=== PATIENT | female | born 1955 | race Hispanic/Latino ===

== ENCOUNTER 2017-05-24 13:09 | Emergency (ER) | payer MEDICAID ==
[2017-05-24 13:10] VITALS: BMI 35.1
[2017-05-24 13:31] VITALS: O2SAT 97
[2017-05-24] MEDS ORDERED: Oxycodone/Acetaminophen 5/325 mg Tab PO STA (15:29)
--- NOTE | 2017-05-24 15:29 | C.PDOC ---
History Of Present Illness Shayy Ross is a 62 year old female, with a past medical history hypertension, diabetes, and chronic back pain, who presents to the emergency department complaining of worsening back pain onset for 1 month. Patient reports she takes 2 Advils every 7 hours with minimal relief but denies taking any pain medication today. Patient denies any fever, chills, nausea, vomit, or abdominal pain. PMD: Karolina Whitley Time Seen by Provider: 05/24/17 13:38 Chief Complaint (Nursing): Lower Extremity Problem/Injury History Per: Patient History/Exam Limitations: no limitations Onset/Duration Of Symptoms: Days (x20 years), Worse Since (x1 month) Current Symptoms Are (Timing): Still Present Severity: Moderate Past Medical History Reviewed: Historical Data, Nursing Documentation, Vital Signs Vital Signs: Last Vital Signs Temp 98.0 F 05/24/17 16:34 Pulse 70 05/24/17 16:34 Resp 20 05/24/17 16:34 BP 119/76 05/24/17 16:34 Pulse Ox 97 05/24/17 16:34 - Medical History PMH: Diabetes, HTN - [facility] Procedures COLONOSCOPY (05/03/13) ESOPHAGOGASTRODUODENOSCOPY [EGD] W/CLOSED BIOPSY (04/23/13) Family History: States: Unknown Family Hx - Social History Hx Tobacco Use: Yes Hx Alcohol Use: No Hx Substance Use: No - Immunization History Hx Tetanus Toxoid Vaccination: No Hx Influenza Vaccination: Yes Hx Pneumococcal Vaccination: No Review Of Systems Except As Marked, All Systems Reviewed And Found Negative. Constitutional: Negative for: Fever, Chills Gastrointestinal: Negative for: Nausea, Vomiting, Abdominal Pain Musculoskeletal: Positive for: Back Pain (chronic) Physical Exam - Physical Exam Appears: Non-toxic, No Acute Distress Skin: Normal Color, Warm, Dry Head: Atraumatic, Normacephalic Eye(s): bilateral: Normal Inspection, PERRL, EOMI Ear(s): Bilateral: Normal Nose: Normal Throat: Normal Neck: Normal Respiratory: Normal Breath Sounds Back: Other (Point tenderness to left lower back) Extremity: Normal ROM Neurological/Psych: Oriented x3, Normal Speech, Normal Cognition, Normal Motor, Normal Sensation ED Course And Treatment O2 Sat by Pulse Oximetry: 97 (RA) Pulse Ox Interpretation: Normal Reassessment Condition: Improved Medical Decision Making Medical Decision Making: Initial Plan: --Flexeril 10 mg PO --Percocet 5/325 mg --Toradol 60 mg IM --reevaluation, improved, no sign of cauda equina Scribe Attestation The documentation for this encounter was entered by Antonio Hernandez acting as a scribe for Tiffany STONE All medical record entries made by the Scribe were at my direction and personally dictated by me. I have reviewed the chart and agree that the record accurately reflects my personal performance of the history, physical exam, medical decision making, and the department course for this patient. I have also personally directed, reviewed, and agree with the discharge instructions and disposition. Disposition Counseled Patient/Family Regarding: Diagnosis, Need For Followup, Rx Given - Disposition Referrals: Karolina Whitley MD [Staff Provider] - Disposition: HOME/ ROUTINE Disposition Time: 16:22 Condition: STABLE Additional Instructions: FOLLOW UP WITH PMD ON FRIDAY FOR RE-EVALUATION. IF SYMPTOMS GET WORSE OR ANY NEW CONCERNING SYMPTOMS DEVELOP RETURN TO ED. Prescriptions: Cyclobenzaprine [Cyclobenzaprine HCl] 1 tab PO TID PRN #15 tab PRN Reason: Pain, Moderate (4-7) Ibuprofen [Motrin Tab] 1 tab PO Q6H PRN #15 tab PRN Reason: Pain, Moderate (4-7) Instructions: Sciatica (ED) Forms: [facility] (Turkish) - Clinical Impression Clinical Impression: Sciatica of left side
[2017-05-24] MEDS ORDERED: Oxycodone/Acetaminophen 5/325 mg Tab ONE (15:46)
[2017-05-24 16:35] VITALS: BP 119/76; PULSE 70; RESP 20; TEMP 98
== END 2017-05-24 16:35 | disposition home or self-care (01) ==
LOC: C.ER 13:09
DX: M54.32 Sciatica, left side (principal)
CPT/HCPCS: 96372; 99284; J1885

== ENCOUNTER 2018-01-23 08:01 | Day surgery (SDC) | payer MEDICAID ==
[2018-01-23] MEDS ORDERED: Propofol 10 mg/ml Inj (20 ML) ONE ×2 (08:14→10:03)
[2018-01-23 08:34] VITALS: BMI 34.7
[2018-01-23 10:05] VITALS: TEMP 97.7
[2018-01-23 11:19] VITALS: BP 130/76; PULSE 78; RESP 15; O2SAT 98
== END 2018-01-23 11:00 | disposition home or self-care (01) ==
LOC: C.ENDO 08:01
PROVIDERS: ATTEND Internal Medicine
DX: K59.09 Other constipation (principal); Z80.0 Family history of malignant neoplasm of digestive organs; K21.9 Gastro-esophageal reflux disease without esophagitis; D12.2 Benign neoplasm of ascending colon; D12.5 Benign neoplasm of sigmoid colon; D12.3 Benign neoplasm of transverse colon; K57.30 Diverticulosis of large intestine without perforation or abscess without bleeding; K29.60 Other gastritis without bleeding; K29.80 Duodenitis without bleeding
CPT/HCPCS: 43239; 45380; 45388; 82948; 88305; J2001; J2704

== ENCOUNTER 2018-01-31 11:25 | Emergency (ER) | payer MEDICAID ==
[2018-01-31 11:25] VITALS: BMI 34.7
[2018-01-31 11:31] VITALS: BP 138/83; PULSE 91; RESP 18; TEMP 98.9; O2SAT 100
[2018-01-31] MEDS ORDERED: Lidocaine 5% Patch TD STA (11:50)
[2018-01-31] MEDS ORDERED: Lidocaine 5% Patch TD ONE (11:57)
--- NOTE | 2018-01-31 12:17 | C.PDOC ---
History Of Present Illness 63 year old female presents to the ED complaining of right sided low back and hip pain radiating down to her leg to mid calf area for a week. Patient describes pain as throbbing, aching with occasional sharpness in her leg. She notes pain is worsened by standing up or walking. Patient reports she has a history of similar symptoms on her left side. She states she takes tylenol and advil but she only gets minimal relief. Patient denies any falls, numbness, or urinary symptoms. Time Seen by Provider: 01/31/18 11:37 Chief Complaint (Nursing): Lower Extremity Problem/Injury History Per: Patient History/Exam Limitations: no limitations Onset/Duration Of Symptoms: Days Current Symptoms Are (Timing): Still Present Quality Of Discomfort: Sharp, Aching, Other (Throbbing ) Exacerbating Factor(s): Movement, Standing Past Medical History Reviewed: Historical Data, Nursing Documentation, Vital Signs Vital Signs: Last Vital Signs Temp 98.9 F 01/31/18 11:29 Pulse 91 H 01/31/18 11:29 Resp 18 01/31/18 11:29 BP 138/83 01/31/18 11:29 Pulse Ox 100 01/31/18 12:37 - Medical History PMH: Diabetes, Hypercholesterolemia Other Surgeries: Tubal Ligation - [facility] Procedures COLONOSCOPY (05/03/13) ESOPHAGOGASTRODUODENOSCOPY [EGD] W/CLOSED BIOPSY (04/23/13) Family History: States: No Known Family Hx - Social History Hx Tobacco Use: Yes Hx Alcohol Use: No Hx Substance Use: No - Immunization History Hx Tetanus Toxoid Vaccination: No Hx Influenza Vaccination: Yes Hx Pneumococcal Vaccination: No Review Of Systems Except As Marked, All Systems Reviewed And Found Negative. Genitourinary: Negative for: Dysuria, Hematuria Musculoskeletal: Positive for: Back Pain, Other (Right sided hip pain radiating down her leg) Neurological: Negative for: Weakness, Numbness Physical Exam - Physical Exam Appears: Non-toxic, No Acute Distress Skin: Normal Color, Warm, Dry Head: Atraumatic, Normacephalic Eye(s): bilateral: Normal Inspection Neck: Normal ROM Chest: Symmetrical Cardiovascular: Rhythm Regular Respiratory: Normal Breath Sounds Gastrointestinal/Abdominal: Soft, No Tenderness, No Guarding Back: Normal Inspection, No Vertebral Tenderness, No Paraspinal Tenderness Extremity: Normal ROM, No Tenderness, No Deformity Neurological/Psych: Oriented x3, Normal Speech Gait: Steady ED Course And Treatment O2 Sat by Pulse Oximetry: 100 (RA) Pulse Ox Interpretation: Normal Medical Decision Making Medical Decision Making: Impression: back pain, sciatica Plan: Toradol 60mg IM Valium 5mg PO Lidoderm patch Re-Eval: On reassessment, patient is resting comfortably, with improvement of back pain. Patient remains afebrile, with no bony tenderness, extremity numbness or weakness, or abdominal pain. Patient is ambulatory in the emergency department with no signs of discomfort. Patient was advised to follow up with physician/ clinic in 1-2 days. Disposition Counseled Patient/Family Regarding: Diagnosis, Need For Followup, Rx Given - Disposition Referrals: Karolina Whitley MD [Staff Provider] - Disposition: HOME/ ROUTINE Disposition Time: 12:15 Condition: GOOD Additional Instructions: Rx sent to [facility] pharmacy You can apply heat to area Take Tylenol 500mg for any pain Take Ibuprofen as needed for pain every 6-8 hours, with food to not upset stomach Take Flexeril every 8 hours as needed for muscular pain and spasm, caution may cause drowsiness Prescriptions: Cyclobenzaprine [Cyclobenzaprine HCl] 10 mg PO TID #21 tab Ibuprofen [Motrin] 600 mg PO Q8 #20 tab Instructions: Sciatica (DC) Forms: [facility] (Hungarian) - POA Present On Arrival: None - Clinical Impression Clinical Impression: Sciatica, Low back pain - PA / DOCUMENT CONTROL MANAGER / Resident Statement MD/DO has reviewed & agrees with the documentation as recorded. - Scribe Statement The provider has reviewed the documentation as recorded by the Scribe (Khushbu Fonseca) All medical record entries made by the Scribe were at my direction and personally dictated by me. I have reviewed the chart and agree that the record accurately reflects my personal performance of the history, physical exam, medical decision making, and the department course for this patient. I have also personally directed, reviewed, and agree with the discharge instructions and disposition.
== END 2018-01-31 12:28 | disposition home or self-care (01) ==
LOC: C.ER 11:25
DX: M54.40 Lumbago with sciatica, unspecified side (principal)
CPT/HCPCS: 96372; 99283; J1885

== ENCOUNTER 2018-04-18 07:37 | Inpatient (IN) | payer MEDICAID ==
[2018-04-18 07:38] VITALS: BMI 34.7
--- NOTE | 2018-04-18 07:49 | C.PDOC ---
Time Seen by Provider: 04/18/18 07:42 Chief Complaint (Nursing): Abnormal Skin Integrity Past Medical History Vital Signs: Last Vital Signs Temp 100.2 F H 04/18/18 07:40 Pulse 105 H 04/18/18 07:40 Resp 20 04/18/18 07:40 BP 152/79 H 04/18/18 07:40 Pulse Ox 99 04/18/18 07:40 - Medical History PMH: Diabetes, Hypercholesterolemia Denies: Chronic Kidney Disease - [facility] Procedures COLONOSCOPY (05/03/13) ESOPHAGOGASTRODUODENOSCOPY [EGD] W/CLOSED BIOPSY (04/23/13) Family History: States: Unknown Family Hx - Social History Hx Tobacco Use: Yes Hx Alcohol Use: No Hx Substance Use: No - Immunization History Hx Tetanus Toxoid Vaccination: No Hx Influenza Vaccination: Yes Hx Pneumococcal Vaccination: No ED Course And Treatment O2 Sat by Pulse Oximetry: 99 Disposition - Disposition
[2018-04-18] MEDS ORDERED: Sodium Chloride 0.9% 1,000 ML IV ONE (08:04)
[2018-04-18 08:33] LABS: BASO # 0.2 K/uL (0.0-0.2); BASO % 0.8 % (0.0-2.0); EOS # 0.1 K/uL (0.0-0.7); EOS % 0.7 % (0.0-4.0); HEMOGLOBIN 13.5 g/dL (11.0-16.0); LYMPH # 3.3 K/uL (1.0-4.3); LYMPH % 17.6 % (20.0-40.0); MEAN CELL VOLUME 88.3 fL (81.0-99.0); MEAN CORPUSCULAR HGB CONC 33.9 g/dL (33.0-37.0); MEAN PLATELET VOLUME 7.9 fL (7.2-11.7); MONO # 1.1 K/uL (0.0-0.8); MONO % 5.8 % (0.0-10.0); NEUT # 14.1 K/uL (1.8-7.0); NEUT % 75.1 % (50.0-75.0); RBC 4.52 Mil/uL (3.80-5.20); RED CELL DISTRIBUTION WIDTH 13.8 % (11.5-14.5)
[2018-04-18 08:34] LABS: WHITE BLOOD COUNT 18.8 K/uL (4.8-10.8)
[2018-04-18 08:45] LABS: ALB/GLOB RATIO 1.3 (1.0-2.1); ALBUMIN 4.5 g/dL (3.5-5.0); ALT/SGPT 24 U/L (9-52); AST/SGOT 23 U/L (14-36); BLOOD UREA NITROGEN 12 mg/dL (7-17); CALCIUM 9.9 mg/dl (8.6-10.4); GFR AFRICAN-AMERICAN > 60; GFR NON-AFRICAN AMERICAN > 60; LIPASE 119 U/L (23-300)
[2018-04-18 08:59] LABS: SQUAMOUS EPITHIAL 15 /hpf (0-5); URINE BILIRUBIN NEGATIVE (NEGATIVE); URINE BLOOD NEGATIVE (NEGATIVE); URINE CLARITY Hazy (Clear); URINE COLOR Amber (YELLOW); URINE GLUCOSE (UA) 1+ mg/dL (Normal); URINE LEUKOCYTE ESTERASE NEG Leu/uL (Negative); URINE PROTEIN NEGATIVE (NEGATIVE); URINE UROBILINOGEN NORMAL mg/dL (0.2-1.0)
--- NOTE | 2018-04-18 09:22 | C.PDOC ---
History Of Present Illness 63 y/o female, with PMHx of diabetes, presents to ED c/o swelling and pain to right side of face for the last 2 weeks. Notes she had unknown imaging done prior. She reports increased swelling to right cheek. Denies any other complaints. Time Seen by Provider: 04/18/18 07:42 Chief Complaint (Nursing): Abnormal Skin Integrity History Per: Patient History/Exam Limitations: no limitations Past Medical History Reviewed: Historical Data, Nursing Documentation, Vital Signs Vital Signs: Last Vital Signs Temp 100.2 F H 04/18/18 07:40 Pulse 105 H 04/18/18 07:40 Resp 20 04/18/18 07:40 BP 152/79 H 04/18/18 07:40 Pulse Ox 99 04/18/18 12:06 - Medical History PMH: Diabetes, Hypercholesterolemia Denies: Chronic Kidney Disease - [facility] Procedures COLONOSCOPY (05/03/13) ESOPHAGOGASTRODUODENOSCOPY [EGD] W/CLOSED BIOPSY (04/23/13) Family History: States: Unknown Family Hx - Social History Hx Tobacco Use: Yes Hx Alcohol Use: No Hx Substance Use: No - Immunization History Hx Tetanus Toxoid Vaccination: No Hx Influenza Vaccination: Yes Hx Pneumococcal Vaccination: No Review Of Systems Except As Marked, All Systems Reviewed And Found Negative. Constitutional: Negative for: Fever, Chills ENT: Positive for: Other (right cheek pain and swelling). Negative for: Throat Swelling Gastrointestinal: Positive for: Nausea. Negative for: Vomiting Neurological: Positive for: Weakness Physical Exam - Physical Exam Appears: Non-toxic, No Acute Distress Skin: Normal Color, Warm, Dry Head: Atraumatic, Normacephalic, Tenderness (right parotid region), Swelling ( right parotid region) Eye(s): bilateral: Normal Inspection Oral Mucosa: Moist Lips: Normal Appearing Teeth: Normal Dentition Gingiva: Normal Appearing Throat: Normal Neck: Normal ROM, Supple, Other (moderate swelling to right mandible and neck area) Cardiovascular: Rhythm Regular Respiratory: Normal Breath Sounds, No Rales, No Rhonchi, No Wheezing Gastrointestinal/Abdominal: Normal Exam Extremity: Normal ROM Neurological/Psych: Oriented x3, Normal Speech Gait: Steady ED Course And Treatment - Laboratory Results Result Diagrams: 04/18/18 08:28 04/18/18 08:28 Lab Interpretation: Abnormal O2 Sat by Pulse Oximetry: 99 Pulse Ox Interpretation: Normal - CT Scan/US No standard instances Other Rad Studies (CT/US): Read By Radiologist, Radiology Report Reviewed CT/US Interpretation: HISTORY: swelling right parotid area. COMPARISON: None available. TECHNIQUE: CT of the neck with intravenous contrast. Coronal and sagittal reformats generated. Intravenous contrast dose: 100 mL Omnipaque 300. Radiation dose: DLP 452.8 mGy-cm. This CT exam was performed using one or more of the following dose reduction techniques: Automated exposure control, adjustment of the mA and/or kV according to patient size, and/or use of iterative reconstruction technique. FINDINGS: NASOPHARYNX: Unremarkable. SUPRAHYOID NECK: Unremarkable oropharynx, oral cavity, parapharyngeal space and retropharyngeal space. INFRAHYOID NECK: Unremarkable larynx, hypopharynx, and supraglottic space. Vocal cords intact. MASS: There is mildly enhancing well defined lesion at the right parotid gland measures 4 centimeter in the largest transverse diameter 4.3 centimeter in the AP diameter and 5.6 centimeter in the largest longitudinal diameter surrounding with thin enhancing wall. Findings suspicious for right parotid tumor. The differential consideration includes less likely parotid abscess. GLANDS: The left parotid gland is unremarkable. The right parotid gland demonstrate mass lesion as described above. There are mild fat stranding surrounding the mid and lower portion of the right parotid gland. Mild skin thickening also noted adjacent to the right parotid gland. Mildly enlarged level 2 right upper neck lymph node measures 1.7 centimeter in the transverse diameter 2.7 centimeter in the longitudinal diameter. The right thyroid lobe is enlarged heterogeneous likely contains large nodule. The left thyroid lobe is normal in size demonstrate heterogeneous attenuation. LYMPH NODES: Normal. No lymphadenopathy. CERVICAL SPINE: No fracture or focal lesion. VASCULAR STRUCTURES: Unremarkable. OTHER FINDINGS: Mild emphysematous changes at the lung apices are noted. IMPRESSION: Well defined mass like lesion at the mid and lower portion of the right parotid gland suspicious for parotid tumor. The differential diagnosis includes less likely parotid abscess. If indicated further assessment by ultrasound or MRI may be obtained. Mildly enlarged right upper neck level 2 lymph nodes. Progress Note: Treated with IVF NSS and toradol IV. On re evaluation lungs clear. Case discussed with Dr Augusto Whitley who agrees to admit. Treated with rocephin and vancomycin IV - Physician Consult Information Physician Contacted: Karolina Whitley Outcome Of Conversation: admit Medical Decision Making Medical Decision Making: Plan: Blood work Urinalysis Neck soft tissue CT Toradol, IV fluids [address] Augusto Whitley about plan of care. Disposition Discussed With Dr.: Karolina Whitley Doctor Will See Patient In The: Hospital - Disposition Disposition: HOSPITALIZED Disposition Time: 12:00 Condition: STABLE Forms: [facility] (Finnish) - POA Present On Arrival: None - Clinical Impression Clinical Impression: Mass of parotid gland - PA / CUSTOMER ORDER CLERK / Resident Statement MD/DO has reviewed & agrees with the documentation as recorded. - Scribe Statement The provider has reviewed the documentation as recorded by the Scribe KP All medical record entries made by the Scribe were at my direction and personally dictated by me. I have reviewed the chart and agree that the record accurately reflects my personal performance of the history, physical exam, medical decision making, and the department course for this patient. I have also personally directed, reviewed, and agree with the discharge instructions and disposition. Decision To Admit - Pt Status Changed To: Hospital Disposition Of: Inpatient - Admit Certification Admit to Inpatient:: After my assessment, the patient will require hospitalization for at least two midnights. This is because of the severity of symptoms shown, intensity of services needed, and/or the medical risk in this patient being treated as an outpatient. - InPatient: Physician Admission Certification: I certify that this patient requires 2 or more midnights of care for the following reason:: Parotid mass - . Bed Request Type: Regular Admitting Physician: Karolina Whitley Patient Diagnosis: Mass of parotid gland
[2018-04-18] MEDS ORDERED: Iodixanol 320 MG/ML 100 ML BOTTLE IV ONE (09:31)
--- NOTE | 2018-04-18 10:32 | CT ---
Date of service: 04/18/2018 PROCEDURE: CT NECK WITH CONTRAST HISTORY: swelling right parotid area COMPARISON: None available. TECHNIQUE: CT of the neck with intravenous contrast. Coronal and sagittal reformats generated. Intravenous contrast dose: 100 mL Omnipaque 300. Radiation dose: DLP 452.8 mGy-cm This CT exam was performed using one or more of the following dose reduction techniques: Automated exposure control, adjustment of the mA and/or kV according to patient size, and/or use of iterative reconstruction technique. FINDINGS: NASOPHARYNX: Unremarkable. SUPRAHYOID NECK: Unremarkable oropharynx, oral cavity, parapharyngeal space and retropharyngeal space. INFRAHYOID NECK: Unremarkable larynx, hypopharynx, and supraglottic space. Vocal cords intact. MASS: There is mildly enhancing well defined lesion at the right parotid gland measures 4 centimeter in the largest transverse diameter 4.3 centimeter in the AP diameter and 5.6 centimeter in the largest longitudinal diameter surrounding with thin enhancing wall. Findings suspicious for right parotid tumor. The differential consideration includes less likely parotid abscess. GLANDS: The left parotid gland is unremarkable. The right parotid gland demonstrate mass lesion as described above. There are mild fat stranding surrounding the mid and lower portion of the right parotid gland. Mild skin thickening also noted adjacent to the right parotid gland. Mildly enlarged level 2 right upper neck lymph node measures 1.7 centimeter in the transverse diameter 2.7 centimeter in the longitudinal diameter. The right thyroid lobe is enlarged heterogeneous likely contains large nodule. The left thyroid lobe is normal in size demonstrate heterogeneous attenuation. LYMPH NODES: Normal. No lymphadenopathy. CERVICAL SPINE: No fracture or focal lesion. VASCULAR STRUCTURES: Unremarkable. OTHER FINDINGS: Mild emphysematous changes at the lung apices are noted. IMPRESSION: Well defined mass like lesion at the mid and lower portion of the right parotid gland suspicious for parotid tumor. The differential diagnosis includes less likely parotid abscess. If indicated further assessment by ultrasound or MRI may be obtained. Mildly enlarged right upper neck level 2 lymph nodes.
[2018-04-18] MEDS ORDERED: cefTRIAXone IV 1 gm in Dextros 50 ML IV ONE (10:38)
[2018-04-18] MEDS ORDERED: Vancomycin 1 GM 1 GM/250 ML BAG IV SCH (11:00)
[2018-04-18] MEDS ORDERED: Vancomycin 1 gm/NS 200 ml 1 GM/200 ML BAG IVPB STA (11:15)
[2018-04-18] MEDS ORDERED: Morphine 4 MG/ML VIAL ONE (15:14)
--- NOTE | 2018-04-18 16:24 | CP.PCM.HP ---
Past Patient History - Infectious Disease Hx of Infectious Diseases: None - Past Medical History & Family History Past Medical History?: Yes - Past Social History Smoking Status: Light Smoker < 10 Cigarettes Daily - CARDIAC Hx Hypercholesterolemia: Yes - PULMONARY Hx Respiratory Disorders: No - NEUROLOGICAL Hx Neurological Disorder: No - HEENT Hx HEENT Problems: No - RENAL Hx Chronic Kidney Disease: No - ENDOCRINE/METABOLIC Hx Endocrine Disorders: No Hx Diabetes Mellitus Type 2: Yes - HEMATOLOGICAL/ONCOLOGICAL Hx Blood Disorders: No - INTEGUMENTARY Hx Dermatological Problems: No - MUSCULOSKELETAL/RHEUMATOLOGICAL Hx Musculoskeletal Disorders: No - GASTROINTESTINAL Hx Gastrointestinal Disorders: Yes Hx Gastroesophageal Reflux: Yes - GENITOURINARY/GYNECOLOGICAL Hx Genitourinary Disorders: No - PSYCHIATRIC Hx Substance Use: No - SURGICAL HISTORY Hx Surgeries: Yes Hx Tubal Ligation: Yes - ANESTHESIA Hx Anesthesia: Yes Hx Anesthesia Reactions: No Hx Malignant Hyperthermia: No Meds Allergies/Adverse Reactions: Allergies Allergy/AdvReac Type Severity Reaction Status Date / Time No Known Allergies Allergy Verified 04/18/18 07:41 Physical Exam - Constitutional Appears: Well - Head Exam Head Exam: ATRAUMATIC, NORMAL INSPECTION, NORMOCEPHALIC - Eye Exam Eye Exam: EOMI, Normal appearance, PERRL Pupil Exam: NORMAL ACCOMODATION, PERRL - ENT Exam ENT Exam: Mucous Membranes Moist, Normal Exam - Neck Exam Neck exam: Positive for: Normal Inspection - Respiratory Exam Respiratory Exam: Decreased Breath Sounds - Cardiovascular Exam Cardiovascular Exam: REGULAR RHYTHM, +S1, +S2 - GI/Abdominal Exam GI & Abdominal Exam: Diminished Bowel Sounds, Soft - Rectal Exam Rectal Exam: Deferred Results - Vital Signs Recent Vital Signs: Last Vital Signs Temp 98.3 F 04/18/18 12:10 Pulse 89 04/18/18 15:18 Resp 16 04/18/18 15:18 BP 154/79 H 04/18/18 15:18 Pulse Ox 100 04/18/18 15:18 - Labs Result Diagrams: 04/18/18 08:28 04/18/18 08:28 Labs: Laboratory Results - last 24 hr 04/18/18 04/18/18 04/18/18 08:28 08:28 08:39 WBC 18.8 H RBC 4.52 Hgb 13.5 Hct 39.9 MCV 88.3 MCH 30.0 MCHC 33.9 RDW 13.8 Plt Count 362 MPV 7.9 Neut % (Auto) 75.1 H Lymph % (Auto) 17.6 L Giles % (Auto) 5.8 Eos % (Auto) 0.7 Baso % (Auto) 0.8 Neut # (Auto) 14.1 H Lymph # (Auto) 3.3 Giles # (Auto) 1.1 H Eos # (Auto) 0.1 Baso # (Auto) 0.2 Sodium 141 Potassium 3.9 Chloride 99 Carbon Dioxide 29 Anion Gap 17 BUN 12 Creatinine 0.8 Est GFR ( Amer) > 60 Est GFR (Non-Af Amer) > 60 Random Glucose 210 H Calcium 9.9 Total Bilirubin 0.7 AST 23 ALT 24 Alkaline Phosphatase 92 Total Protein 8.0 Albumin 4.5 Globulin 3.5 Albumin/Globulin Ratio 1.3 Lipase 119 Urine Color Agata Urine Clarity Hazy Urine pH 6.0 Ur Specific [place] 1.023 Urine Protein Negative Urine Glucose (UA) 1+ Urine Ketones Negative Urine Blood Negative Urine Nitrate Negative Urine Bilirubin Negative Urine Urobilinogen Normal Ur Leukocyte Esterase Neg Urine WBC (Auto) 2 Urine RBC (Auto) 1 Ur Squamous Epith Cells 15 H
[2018-04-18 17:52] VITALS: RESP 20
[2018-04-18] MEDS: (Novolog) Insulin Aspart, Recombinant 100 u/ml 10 ml vial SC SCH (22:37)
[2018-04-19] MEDS: (Novolog) Insulin Aspart, Recombinant 100 u/ml 10 ml vial SC SCH ×4 (08:20→21:51)
[2018-04-19] MEDS ORDERED: LIRAGLUTIDE 1.8 MG PO SCH (10:00)
[2018-04-19] MEDS: Pantoprazole 40 mg EC Tab PO SCH (10:45)
[2018-04-19] MEDS: Enoxaparin 40 mg Syringe SC SCH (10:45)
--- NOTE | 2018-04-19 12:53 | CP.PCM.PN ---
Subjective - Date & Time of Evaluation Date of Evaluation: 04/19/18 Time of Evaluation: 07:45 - Subjective Subjective: clinically same Objective - Vital Signs/Intake and Output Vital Signs (last 24 hours): Temp Pulse Resp BP Pulse Ox 98.9 F 90 20 133/78 97 04/19/18 08:27 04/19/18 08:27 04/19/18 08:27 04/19/18 08:27 04/19/18 08:27 Intake and Output: 04/19/18 04/19/18 06:59 18:59 Intake Total 120 Balance 120 - Medications Medications: Current Medications Cyclobenzaprine HCl (Flexeril) 10 mg PO TID [facility] Last Admin: 04/19/18 10:45 Dose: 10 mg Enoxaparin Sodium (Lovenox) 40 mg SC DAILY [facility] Last Admin: 04/19/18 10:45 Dose: 40 mg Hydrochlorothiazide (Hydrodiuril) 25 mg PO DAILY [facility] Last Admin: 04/19/18 10:44 Dose: 25 mg Ceftriaxone Sodium 1 gm/ (Sodium Chloride) 100 mls @ 200 mls/hr IVPB Q24H [facility] PRN Reason: Protocol Last Admin: 04/19/18 11:02 Dose: 200 mls/hr Ibuprofen (Motrin Tab) 800 mg PO TID PRN PRN Reason: Pain, moderate (4-7) Last Admin: 04/19/18 12:34 Dose: 800 mg Insulin Aspart (Novolog) 0 unit SC ACHS [facility] PRN Reason: Protocol Last Admin: 04/19/18 11:07 Dose: Not Given Metformin HCl (Glucophage) 1,000 mg PO BIDCC [facility] Last Admin: 04/19/18 08:19 Dose: 1,000 mg Morphine Sulfate (Morphine) 2 mg IVP Q4 PRN PRN Reason: Pain, severe (8-10) Last Admin: 04/19/18 08:35 Dose: 2 mg Pantoprazole Sodium (Protonix Ec Tab) 40 mg PO DAILY [facility] Last Admin: 04/19/18 10:45 Dose: 40 mg Pneumococcal Polyvalent Vaccine (Pneumovax 23 Vaccine) 0.5 ml IM .ONCE ONE Stop: 04/21/18 10:01 Rosuvastatin Calcium (Crestor) 5 mg PO [facility] Last Admin: 04/18/18 22:35 Dose: Not Given - Labs Labs: 04/18/18 08:28 04/18/18 08:28 - Constitutional Appears: Well - Head Exam Head Exam: ATRAUMATIC, NORMAL INSPECTION, NORMOCEPHALIC - Eye Exam Eye Exam: EOMI, Normal appearance, PERRL Pupil Exam: NORMAL ACCOMODATION, PERRL - ENT Exam ENT Exam: Mucous Membranes Moist, Normal Exam - Neck Exam Neck Exam: Full ROM, Normal Inspection. absent: Lymphadenopathy - Respiratory Exam Respiratory Exam: Decreased Breath Sounds - Cardiovascular Exam Cardiovascular Exam: REGULAR RHYTHM, +S1, +S2 - GI/Abdominal Exam GI & Abdominal Exam: Soft, Diminished Bowel Sounds - Rectal Exam Rectal Exam: Deferred
--- NOTE | 2018-04-19 14:59 | CP.PCM.CON ---
History of Present Illness - History of Present Illness History of Present Illness: 63 y/o female, with PMHx of diabetes, presents to ED c/o swelling and pain to right side of face for the last 2 weeks. Notes she had unknown imaging done prior. She reports increased swelling to right cheek. Denies any other complaints. ID consult requested may need drainage by ENT - Medical History PMH: Diabetes, Hypercholesterolemia Denies: Chronic Kidney Disease - [facility] Procedures COLONOSCOPY (05/03/13) ESOPHAGOGASTRODUODENOSCOPY [EGD] W/CLOSED BIOPSY (04/23/13) Review of Systems - Review of Systems All systems: reviewed and no additional remarkable complaints except - Constitutional Constitutional: As Per HPI - EENT Eyes: absent: As Per HPI, Blind Spots, Blurred Vision, Change in Vision, Decreased Night Vision, Diplopia, Discharge, Dry Eye, Exophthalmos, Floaters, Irritation, Itchy Eyes, Loss of Peripheral Vision, Pain, Photophobia, Requires Corrective Lenses, Sees Flashes, Spots in Vision, Tunnel Vision, Other Visual Disturbances, Loss of Vision, Other Ears: absent: As Per HPI, Decreased Hearing, Ear Discharge, Ear Pain, Tinnitus, Abnormal Hearing, Disequilibrium, Dizziness, Other Nose/Mouth/Throat: As Per HPI - Breasts Breasts: absent: As Per HPI, Change in Shape, Mass, Pain, Nipple Discharge, Nipple Inversion, Skin Changes, Swelling, Other - Cardiovascular Cardiovascular: absent: As Per HPI, Acrocyanosis, Chest Pain, Chest Pain at Rest , Chest Pain with Activity, Claudication, Diaphoresis, Dyspnea, Dyspnea on Exertion, Edema, Irregular Heart Rhythm, Pain Radiating to Arm/Neck/Jaw, Leg Edema, Leg Ulcers, Lightheadedness, Orthopnea, Palpitations, Paroxysmal Nocturnal Dyspnea, Pedal Edema, Radiating Pain, Rapid Heart Rate, Slow Heart Rate, Syncope, Other - Respiratory Respiratory: absent: As Per HPI, Cough, Dyspnea, Hemoptysis, Dyspnea on Exertion , Wheezing, Snoring, Stridor, Pain on Inspiration, Chest Congestion, Excessive Mucous Production, Change in Mucous Color, Pain with Coughing, Other - Gastrointestinal Gastrointestinal: absent: As Per HPI, Abdominal Pain, Belching, Bloating, Change in Bowel Habits, Change in Stool Character, Coffee Ground Emesis, Constipation, Cramping, Diarrhea, Dyspepsia, Dysphagia, Early Satiety, Excessive Flatus, Fecal Incontinence, Heartburn, Hematemesis, Hematochezia, Loose Stools, Melena, Nausea, Odynophagia, Temesmus, Vomiting, Other - Genitourinary Genitourinary: absent: As Per HPI, Change in Urinary Stream, Difficulty Urinating, Dysuria, Flank Pain, Hematuria, Pyuria, Nocturia, Urinary Incontinence, Urinary Frequency, Urinary Hesitance, Urinary Urgency, Voiding Freq/Small Amts, Freq UTI, Hx Renal/Bladder Calculi, Hx /Renal Surgery, Bladder Distension, Other - Reproductive: Female Reproductive:Female: absent: As Per HPI, Amenorrhea, Amenorrhea/ Control, Currently Menstual, Cycle <21 Days, Cycle >35 Days, Cycle Variable, Menses 1-7 Days, Menses >/= 8 Days, Menses Variable, Cycle > 4 Weeks Between, No Menses for 6 Months, Heavy Menses, Light Menses, Normal Menses, Spotting Between Cycles , S/P Hysterectomy, Menopausal, Post Menopausal, Premenarche, Abnormal Vaginal Bleeding, Dysmenorrhea, Dyspareunia, Genital Lesions, Genital Pruritis, Pelvic Pain, Prolapse Symptoms, Sexual Dysfunction, Vaginal Discharge, Vaginal Dryness , Vaginal Odor, Vaginal Pruritis, Other - Menstruation Menstruation: absent: As Per HPI, Amenorrhea, Amenorrhea/ Control, Currently Menstual, Cycle <21 Days, Cycle >35 Days, Cycle Variable, Menses 1-7 Days, Menses >/= 8 Days, Menses Variable, Cycle > 4 Weeks Between, No Menses for 6 Months, Heavy Menses, Light Menses, Normal Menses, Spotting Between Cycles , S/P Hysterectomy, Menopausal, Post Menopausal, Premenarche, Abnormal Vaginal Bleeding, Dysmenorrhea, Other - Musculoskeletal Musculoskeletal: absent: As Per HPI, Abnormal Gait, Arthralgias, Atrophy, Back Pain, Deformity, Joint Swelling, Limited Range of Motion, Loss of Height, Muscle Cramps, Muscle Weakness, Myalgias, Neck Pain, Numbness, Radiating Pain into Limb, Stiffness, Tingling, Other - Integumentary Integumentary: absent: As Per HPI, Acne, Alopecia, Bleeding Lesions, Change in Hair, Change in Nails, Change in Pigmentation, Changing Lesions, Dry Skin, Erythema, Furuncle, Hirsutism, Lesions, New Lesions, Non-Healing Lesions, Photosensitivity, Pruritus, Rash, Skin Pain, Skin Ulcer, Sores, Striae, Swelling , Unusual Bruising, Wounds, Jaundice, Other - Neurological Neurological: absent: As Per HPI, Abnormal Gait, Abnormal Hearing, Abnormal Movements, Abnormal Speech, Behavioral Changes, Burning Sensations, Confusion, Convulsions, Disequilibrium, Dizziness, Numbness, Focal Weakness, Frequent Falls , Headaches, Lack of Coordination, Loss of Vision, Memory Loss, Paresthesias, Radicular Pain, Restless Legs, Sensory Deficit, Syncope, Tingling, Tremor, Vertigo, Weakness, Other Visual Disturbances, Other - Psychiatric Psychiatric: absent: As Per HPI, Abnormal Sleep Pattern, Anhedonia, Anxiety, Auditory Hallucinations, Behavioral Changes, Change in Appetite, Change in Libido, Confusion, Depression, Difficulty Concentrating, Hallucinations, Homicidal Ideation, Hopelessness, Irritability, Memory Loss, Mood Swings, Panic Attacks, Paranoia, Suicidal Ideation, Visual Hallucinations, Tactile Hallucinations, Other - Endocrine Endocrine: absent: As Per HPI, Change in Body Appearance, Change in Libido, Cold Intolorance, Deepening of Voice, Excessive Sweating, Fatigue, Flushing, Heat Intolorance, Increase in Ring/Shoe/Hat Size, Palpitations, Polydipsia, Polyphagia, Polyuria, Other - Hematologic/Lymphatic Hematologic: absent: As Per HPI, Easy Bleeding, Easy Bruising, Lymphadenopathy, Other Past Patient History - Infectious Disease Hx of Infectious Diseases: None - Past Medical History & Family History Past Medical History?: Yes - Past Social History Smoking Status: Light Smoker < 10 Cigarettes Daily - CARDIAC Hx Hypercholesterolemia: Yes - PULMONARY Hx Respiratory Disorders: No - NEUROLOGICAL Hx Neurological Disorder: No - HEENT Hx HEENT Problems: No - RENAL Hx Chronic Kidney Disease: No - ENDOCRINE/METABOLIC Hx Endocrine Disorders: No Hx Diabetes Mellitus Type 2: Yes - HEMATOLOGICAL/ONCOLOGICAL Hx Blood Disorders: No - INTEGUMENTARY Hx Dermatological Problems: No - MUSCULOSKELETAL/RHEUMATOLOGICAL Hx Musculoskeletal Disorders: No Hx Falls: No - GASTROINTESTINAL Hx Gastrointestinal Disorders: Yes Hx Gastroesophageal Reflux: Yes - GENITOURINARY/GYNECOLOGICAL Hx Genitourinary Disorders: No - PSYCHIATRIC Hx Substance Use: No - SURGICAL HISTORY Hx Surgeries: Yes Hx Tubal Ligation: Yes - ANESTHESIA Hx Anesthesia: Yes Hx Anesthesia Reactions: No Hx Malignant Hyperthermia: No Meds Allergies/Adverse Reactions: Allergies Allergy/AdvReac Type Severity Reaction Status Date / Time No Known Allergies Allergy Verified 04/18/18 07:41 - Medications Medications: Current Medications Cyclobenzaprine HCl (Flexeril) 10 mg PO TID [facility] Last Admin: 04/19/18 14:21 Dose: 10 mg Enoxaparin Sodium (Lovenox) 40 mg SC DAILY [facility] Last Admin: 04/19/18 10:45 Dose: 40 mg Hydrochlorothiazide (Hydrodiuril) 25 mg PO DAILY [facility] Last Admin: 04/19/18 10:44 Dose: 25 mg Ceftriaxone Sodium 1 gm/ (Sodium Chloride) 100 mls @ 200 mls/hr IVPB Q24H [facility] PRN Reason: Protocol Last Admin: 04/19/18 11:02 Dose: 200 mls/hr Ibuprofen (Motrin Tab) 800 mg PO TID PRN PRN Reason: Pain, moderate (4-7) Last Admin: 04/19/18 12:34 Dose: 800 mg Insulin Aspart (Novolog) 0 unit SC ACHS [facility] PRN Reason: Protocol Last Admin: 04/19/18 11:07 Dose: Not Given Metformin HCl (Glucophage) 1,000 mg PO BIDCC [facility] Last Admin: 04/19/18 08:19 Dose: 1,000 mg Morphine Sulfate (Morphine) 2 mg IVP Q4 PRN PRN Reason: Pain, severe (8-10) Last Admin: 04/19/18 08:35 Dose: 2 mg Pantoprazole Sodium (Protonix Ec Tab) 40 mg PO DAILY [facility] Last Admin: 04/19/18 10:45 Dose: 40 mg Pneumococcal Polyvalent Vaccine (Pneumovax 23 Vaccine) 0.5 ml IM .ONCE ONE Stop: 04/21/18 10:01 Rosuvastatin Calcium (Crestor) 5 mg PO [facility] Last Admin: 04/18/18 22:35 Dose: Not Given Physical Exam - Constitutional Appears: Non-toxic, Chronically Ill - Head Exam Head Exam: NORMOCEPHALIC - Eye Exam Eye Exam: PERRL - ENT Exam ENT Exam: Mucous Membranes Dry Additional comments: large mass right parotid- + tenderness and warmth - Neck Exam Neck exam: Negative for: Lymphadenopathy - Respiratory Exam Respiratory Exam: Decreased Breath Sounds - Cardiovascular Exam Cardiovascular Exam: REGULAR RHYTHM - GI/Abdominal Exam GI & Abdominal Exam: Diminished Bowel Sounds - Rectal Exam Rectal Exam: Deferred - Exam Exam: NORMAL INSPECTION - Extremities Exam Extremities exam: Negative for: pedal edema - Back Exam Back exam: absent: CVA tenderness (L), CVA tenderness (R) - Neurological Exam Neurological exam: Alert, CN II-XII Intact, Oriented x3, Reflexes Normal - Psychiatric Exam Psychiatric exam: Normal Mood - Skin Skin Exam: Dry Results - Vital Signs Recent Vital Signs: Last Vital Signs Temp 98.9 F 04/19/18 08:27 Pulse 90 04/19/18 08:27 Resp 20 04/19/18 08:27 BP 133/78 04/19/18 08:27 Pulse Ox 97 04/19/18 08:27 - Labs Result Diagrams: 04/18/18 08:28 04/18/18 08:28 Assessment & Plan (1) Mass of parotid gland Status: Acute - Assessment and Plan (Free Text) Assessment: await cultures may need ENT drainage
--- NOTE | 2018-04-19 16:21 | US ---
Date of service: 04/19/2018 PROCEDURE: Ultrasound examination of the right parotid gland HISTORY: right parotid mass COMPARISON: Comparison is made with the previous CT of the neck dated 04/18/2018 TECHNIQUE: Limited ultrasound examination of the right parotid gland noted. FINDINGS: This study demonstrate heterogeneous complex mass lesion at the right parotid gland contains cystic and solid component measures 5.7 x 3.5 x 4.1 IMPRESSION: Complex lesion at the right parotid gland contains cystic and solid components without increased vascularity
[2018-04-19] MEDS: Nystatin 100,000 Units/ml Oral Susp 5 ml UD PO SCH ×2 (17:27→21:50)
[2018-04-19] MEDS: Piperacillin/Tazobact 3.375 GM in Sodium Chloride 100 ML IVPB SCH (17:28)
[2018-04-19] MEDS: Benzocaine/Menthol (Cepacol) Lozenge MT SCH ×2 (17:39→21:50)
[2018-04-20 00:24] VITALS: O2SAT 97
[2018-04-20] MEDS: Piperacillin/Tazobact 3.375 GM in Sodium Chloride 100 ML IVPB SCH ×2 (01:06→08:22)
[2018-04-20 07:18] LABS: BASO # 0.1 K/uL (0.0-0.2); BASO % 0.6 % (0.0-2.0); EOS # 0.2 K/uL (0.0-0.7); EOS % 1.1 % (0.0-4.0); HEMOGLOBIN 12.2 g/dL (11.0-16.0); LYMPH # 2.6 K/uL (1.0-4.3); LYMPH % 19.3 % (20.0-40.0); MEAN CELL VOLUME 88.2 fL (81.0-99.0); MEAN CORPUSCULAR HEMOGLOBIN 29.8 pg (27.0-31.0); MEAN CORPUSCULAR HGB CONC 33.8 g/dL (33.0-37.0); MONO % 7.2 % (0.0-10.0); NEUT # 9.7 K/uL (1.8-7.0); NEUT % 71.8 % (50.0-75.0); RBC 4.09 Mil/uL (3.80-5.20); RED CELL DISTRIBUTION WIDTH 13.4 % (11.5-14.5); WHITE BLOOD COUNT 13.5 K/uL (4.8-10.8)
[2018-04-20 08:07] LABS: ALB/GLOB RATIO 1.3 (1.0-2.1); ALBUMIN 4.1 g/dL (3.5-5.0); ALT/SGPT 19 U/L (9-52); AST/SGOT 26 U/L (14-36); BLOOD UREA NITROGEN 8 mg/dL (7-17); CALCIUM 9.3 mg/dl (8.6-10.4); GFR AFRICAN-AMERICAN > 60; GFR NON-AFRICAN AMERICAN > 60
[2018-04-20 08:09] LABS: HEPATITIS B SURFACE AG Negative (NEGATIVE)
[2018-04-20 08:14] LABS: HEPATITIS A IGM NEGATIVE (NEGATIVE); HEPATITIS B CORE AB NEGATIVE (NEGATIVE)
[2018-04-20] MEDS: (Novolog) Insulin Aspart, Recombinant 100 u/ml 10 ml vial SC SCH (08:21)
[2018-04-20 08:26] LABS: HEPATITIS C ANTIBODY NEGATIVE (NEGATIVE)
[2018-04-20 08:29] VITALS: BP 106/68; PULSE 92; TEMP 98.4
[2018-04-20] MEDS ORDERED: Potassium Chloride 10 mEq ER Tab PO SCH (09:00)
[2018-04-20] MEDS: Nystatin 100,000 Units/ml Oral Susp 5 ml UD PO SCH (10:14)
[2018-04-20] MEDS: Enoxaparin 40 mg Syringe SC SCH (10:14)
[2018-04-20] MEDS: Pantoprazole 40 mg EC Tab PO SCH (10:15)
[2018-04-20] MEDS: Benzocaine/Menthol (Cepacol) Lozenge MT SCH ×2 (10:15→10:20)
[2018-04-21] MEDS ORDERED: Pneumococcal 23-Valent Vaccine IM ONE (10:00)
== END 2018-04-20 11:40 | disposition left against medical advice (07) | DRG 73 ==
LOC: C.ER 07:37 → C.9E 10:53 → C.3T 16:45
PROVIDERS: ADMIT Internal Medicine Nephrology; ATTEND Internal Medicine Nephrology
DX: K11.20 Sialoadenitis, unspecified (principal); E78.00 Pure hypercholesterolemia, unspecified; K21.9 Gastro-esophageal reflux disease without esophagitis; E11.9 Type 2 diabetes mellitus without complications; Z87.891 Personal history of nicotine dependence